=== PATIENT | female | born 1970 | race Caucasian/White ===

== ENCOUNTER 2017-12-28 07:47 | Emergency (ER) | payer MEDICAID ==
[~2017-12-28] VITALS: Ht 165.1 cm; Wt 75.0 kg
[2017-12-28 07:52] VITALS: Ht 165.1 cm; Wt 75.0 kg
[2017-12-28] MEDS ORDERED: ESTRACE2 MG PO (07:54)
[2017-12-28 08:23] LABS: BASOPHILS 0.1 % (0-2); EOSINOPHILS 0.7 % (0-7); HEMATOCRIT 47.7 % (36.0-48.0); HEMOGLOBIN 16.4 g/dL (12-16); IMMATURE GRANULOCYTES 0.3 % (0-5); LYMPHOCYTES 32.9 % (15-50); MCH 29.8 pg (26.0-34.0); MCHC 34.4 g/dL (31.0-37.0); MCV 86.6 fL (80.0-100.0); MEAN PLATELET VOLUME 9.6 fL (7.4-10.4); MONOCYTES 6.3 % (2-11); NEUTROPHILS 59.7 % (40-80); PLATELET COUNT 274 10x3/uL (130-400); RBC 5.51 10x6/uL (4.00-5.40); RDW 13.3 % (11.5-14.5); WBC 9.2 10x3/uL (4.8-10.8)
[2017-12-28 08:49] LABS: ALBUMIN 4.1 g/dL (3.4-5.0); ALKALINE PHOSPHATASE 82 U/L (46-116); ALT (SGPT) 16 U/L (10-68); BILIRUBIN - TOTAL 0.33 mg/dL (0.2-1.3); CALC OSMOLALITY 278 mosm/kg (275-300); CALCIUM 9.2 mg/dL (8.5-10.1); CARBON DIOXIDE 23.4 mmol/L (21.0-32.0); CHLORIDE - SERUM 105 mmol/L (98-107); CREATININE - SERUM 0.8 mg/dL (0.6-1.3); GLUCOSE 110 mg/dL (74-106); POTASSIUM - SERUM 3.7 mmol/L (3.5-5.1); PROTEIN - SERUM 8.1 g/dL (6.4-8.2); SODIUM 140 mmol/L (136-145); UREA NITROGEN 10 mg/dL (7-18); eGFR NON AFRICAN AMERICAN 82 mL/min (90-120)
[2017-12-28] MEDS ORDERED: ULTRAM50 MG PO (09:58)
[2017-12-28] MEDS ORDERED: HYDROCODON-ACE1 EAC7 PO (10:07)
[2017-12-28 10:21] VITALS: BP 146/84
[2017-12-28 10:27] LABS: COLOR YELLOW (YELLOW); GLUCOSE NEGATIVE (NEGATIVE); KETONE NEGATIVE (NEGATIVE); NITRITE NEGATIVE (NEGATIVE); SPECIFIC GRAVITY 1.015 (1.005-1.020)
[2017-12-28 10:28] LABS: BACTERIA FEW /hpf (NONE SEEN); BILIRUBIN NEGATIVE (NEGATIVE); EPITHELIAL CELLS 0-5 /hpf (0-5); MUCUS <1+ /lpf (NONE SEEN); WHITE CELLS - URINE RARE /hpf (0-5)
[2017-12-28 11:05] LABS: APPEARANCE CLEAR (CLEAR)
[2017-12-28 11:06] LABS: PROTEIN NEGATIVE (NEGATIVE); UROBILINOGEN NORMAL (NORMAL)
[2018-02-16] MEDS ORDERED: NEURONTIN600 MG PO (10:27)
[2018-02-16] MEDS ORDERED: VALIUM10 MG PO (10:28)
[2018-02-26 09:05] VITALS: Ht 165.1 cm; Wt 75.0 kg
== END 2017-12-28 10:22 | disposition home or self-care (01) ==
LOC: D.ER 07:47
PROVIDERS: Family Medicine
DX: N93.9 Abnormal uterine and vaginal bleeding, unspecified (principal); M54.5 Low back pain; F17.200 Nicotine dependence, unspecified, uncomplicated

== ENCOUNTER 2018-02-17 08:15 | Inpatient (IN) | payer MEDICAID ==
[2018-02-16 10:58] LABS: BASOPHILS 0.3 % (0-2); EOSINOPHILS 0.9 % (0-7); HEMATOCRIT 45.8 % (36.0-48.0); HEMOGLOBIN 15.8 g/dL (12-16); IMMATURE GRANULOCYTES 0.3 % (0-5); LYMPHOCYTES 32.6 % (15-50); MCH 29.8 pg (26.0-34.0); MCHC 34.5 g/dL (31.0-37.0); MCV 86.4 fL (80.0-100.0); MEAN PLATELET VOLUME 9.1 fL (7.4-10.4); MONOCYTES 5.6 % (2-11); NEUTROPHILS 60.3 % (40-80); PLATELET COUNT 284 10x3/uL (130-400); RDW 14.1 % (11.5-14.5); WBC 7.5 10x3/uL (4.8-10.8)
[2018-02-16 11:11] LABS: ANION GAP 13.1 mmol/L (8-16); CALCIUM 9.1 mg/dL (8.5-10.1); CARBON DIOXIDE 25.4 mmol/L (21.0-32.0); CREATININE - SERUM 0.9 mg/dL (0.6-1.3); POTASSIUM - SERUM 4.5 mmol/L (3.5-5.1)
[2018-02-17] VITALS (7 sets, daily range): BP systolic 114–137; BP diastolic 54–87; Ht 165.1 cm; Wt 70.5 kg
[~2018-02-17] VITALS: Ht 165.1 cm; Wt 70.5 kg
--- NOTE | ~2018-02-17 | DS ---
PATIENT:MELISSA DUMONT :72 MEDICAL RECORD: [id number] DISCHARGE SUMMARY ADMISSION DATE: 02/17/18 DISCHARGE DATE: DATE OF ADMISSION: 02/17/2018. DATE OF DISCHARGE: 02/19/2018. ADMISSION DIAGNOSIS: Dysfunctional bleeding. DISCHARGE DIAGNOSIS: Dysfunctional bleeding. PROCEDURE: Total abdominal hysterectomy. HISTORY OF PRESENT ILLNESS: See the H&P in the chart. ATTENDING: Misbah Davis MD SUMMARY OF HOSPITALIZATION: The patient was admitted to the hospital and underwent procedure without incident. There was some issue with postoperative pain management on hospital day #1 and her Percocet was changed to Dilaudid. At discharge, she will be receiving Dilaudid for pain management as well as Neurontin. I have asked her to take Neurontin 300 mg t.i.d. for the next 3 days. The patient will be followed up in 2 weeks and standard postoperative precautions have been reviewed. At the time of discharge, she has adequate pain control, is afebrile and incision is clean, dry and intact. TRANSINT:[id number] Voice Confirmation ID: [id number] DOCUMENT ID: [id number] MISBAH DAVIS MD at 1609 CC: [id number] DICTATION DATE: 02/19/18 1302 PROCESS AUTOMATION ENGINEER: 02/19/18 1312 ADM IN [place] [id number]
--- NOTE | ~2018-02-17 | OP ---
PATIENT NAME: MELISSA DUMONT MEDICAL RECORD: [id number] :72 LOCATION:[place] D.1217 ADMISSION DATE:02/17/18 SURGEON: AB DAVIS MD DATE OF OPERATION: 02/17/2018 DATE OF SERVICE: 02/17/2018 PREOPERATIVE DIAGNOSIS: Dysfunctional uterine bleeding. POSTOPERATIVE DIAGNOSES: 1. Dysfunctional uterine bleeding. 2. Dense pelvic adhesions. PROCEDURE PERFORMED: 1. Exploratory laparotomy. 2. Lysis of adhesions. 3. Repair of serosal bowel tear. 4. Subtotal hysterectomy. SURGEON: Ab Davis MD RESIDENTIAL MENTAL HEALTH WORKER: Dr. Mina. PUMP ROOM OPERATOR: Jose Garcia. ANESTHESIA: General. FINDINGS: Uterus is unremarkable. The bladder was adhesed to the cervix densely. Several bowel adhesions to the midline. Ovaries are surgically absent. ESTIMATED BLOOD LOSS: Less than or equal to 100. FLUIDS: 800 cc of lactated Ringer's. URINE OUTPUT: 100 cc of clear urine. COMPLICATIONS: None. DRAINS: Qiu to gravity. INDICATIONS: The patient is a 47-year-old female who has previously had both ovaries removed in separate procedures. The patient was scheduled to go back for hysterectomy, but failed to follow up with her surgeon in [place]. The patient now is on hormone replacement therapy and has been taking unopposed estrogen. Biopsy shows benign tissue. At this point, the patient desires definitive therapy for her bleeding. The patient has been consented for abdominal hysterectomy. DESCRIPTION OF PROCEDURE: After informed consent was ensured, the patient was taken to the operating room where anesthetic was obtained. The patient was now prepped and draped and an incision was made over the old scar. The fascia was opened and the fascial opening extended laterally. The rectus was dissected free superiorly and inferiorly and then in the midline. Immediate adhesions were encountered. These dense adhesions were taken down sharply. OPERATIVE REPORT [id number] MELISSA DUMONT During this, a small serosal tear occurred in the serosa of the bowel and it was closed with an imbricating stitch of silk. After this had been performed, the bowel was packed free of the pelvis with the patient in Trendelenburg position and using hand held retractors, the uterus exposed and Carmalt clamps placed on the cornual regions. The round ligament on the left side was elevated, transfixed with a stitch and opened. The dissection was carried down anteriorly to the level of the internal os. The surrounding tissues were dissected free and the vessels were doubly clamped. Attention was now directed to the right side where the dissection was carried out in a similar manner by elevating the right round ligament and transfixing with a Vicryl stitch. Dissection began at the round ligament, it was carried down the anterior leaf of the broad ligament and then the posterior leaf. The right vascular bundle was doubly clamped and cut and the 2 Jefry stitch applied here for hemostasis. The left vascular bundle was now cut and tied in a similar fashion. The inspection of the anterior wall revealed dense adhesions of the bladder to the cervix and it was felt prudent to abandon attempts at a total abdominal hysterectomy given the patient's low risk for cervical cancer and a history of normal Pap smears. After removal of the uterus from its attachments to the cervix, the endocervical canal was cauterized. Cervical stump was closed with interrupted stitches. The pelvis was irrigated and irrigant removed. General surgery was consulted to inspect bowel injury. After inspection of the injury, the fascia was now closed in a running fashion with absorbable suture. Subcutaneous tissue was inspected and bleeding vessels cauterized. Skin was now reapproximated. Sponge, lap, and needle count was correct times 2. The patient was awakened and went to the recovery room in stable condition. TRANSINT:[id number] Voice Confirmation ID: [id number] DOCUMENT ID: [id number] AB DAVIS MD at 1217 CC: [id number] DICTATION DATE: 03/11/18 1633 STOCK SHEETS CLEANER INSPECTOR: 03/11/18 1723 DIS IN 02/19/18 [facility] [address] [place] [id number]
[~2018-02-17 08:15] MED LIST: ESTRACE2 MG PO; HYDROCODON-ACE1 EAC7 PO; NEURONTIN600 MG PO; ULTRAM50 MG PO; VALIUM10 MG PO
[2018-02-17 09:37] LABS: HCG URINE NEGATIVE (NEGATIVE)
[2018-02-18 03:45] VITALS: BP 103/54
[2018-02-18 06:31] LABS: BASOPHILS 0 % (0-2); EOSINOPHILS 0 % (0-7); HEMOGLOBIN 13.3 g/dL (12-16); IMMATURE GRANULOCYTES 0.1 % (0-5); LYMPHOCYTES 10.8 % (15-50); MCH 28.8 pg (26.0-34.0); MCHC 33.3 g/dL (31.0-37.0); MCV 86.6 fL (80.0-100.0); MEAN PLATELET VOLUME 9.7 fL (7.4-10.4); MONOCYTES 5.6 % (2-11); NEUTROPHILS 83.5 % (40-80); PLATELET COUNT 249 10x3/uL (130-400); RBC 4.62 10x6/uL (4.00-5.40); RDW 14.1 % (11.5-14.5)
[2018-02-18 06:34] LABS: CALC OSMOLALITY 272 mosm/kg (275-300); CALCIUM 8.3 mg/dL (8.5-10.1); CARBON DIOXIDE 25.7 mmol/L (21.0-32.0); CHLORIDE - SERUM 104 mmol/L (98-107); CREATININE - SERUM 0.7 mg/dL (0.6-1.3); GLUCOSE 106 mg/dL (74-106); POTASSIUM - SERUM 4.5 mmol/L (3.5-5.1); SODIUM 138 mmol/L (136-145); UREA NITROGEN 5 mg/dL (7-18); eGFR NON AFRICAN AMERICAN > 90 mL/min (90-120)
[2018-02-18 06:39] LABS: WBC 10.8 10x3/uL (4.8-10.8)
[2018-02-18 08:20] VITALS: BP 107/50
[2018-02-18 11:22] VITALS: BP 100/53
[2018-02-18 16:45] VITALS: BP 116/60
[2018-02-18 20:25] VITALS: BP 133/81
[2018-02-19 00:35] VITALS: BP 116/82
[2018-02-19 04:04] VITALS: BP 109/68
[2018-02-19 08:06] VITALS: BP 112/82
[2018-02-19] MEDS ORDERED: NEURONTIN 300300 MG PO (14:21)
[2018-02-19] MEDS ORDERED: MEPERIDINE HCL50 MG PO (14:22)
== END 2018-02-19 14:47 | disposition home or self-care (01) | DRG 743 ==
LOC: D.WS 08:50 → D.SDCHOLD 08:50 → D.WS 17:21
PROVIDERS: Obstetrics & Gynecology
PROC: 0UT94ZZ Resection of Uterus, Percutaneous Endoscopic Approach (ICD-10-PCS; principal; 2018-02-17 11:00)
DX: N93.8 Other specified abnormal uterine and vaginal bleeding (principal); I10 Essential (primary) hypertension; Z72.0 Tobacco use

== ENCOUNTER 2018-02-26 09:00 | Emergency (ER) | payer MEDICAID ==
[~2018-02-26] VITALS: Ht 165.1 cm; Wt 70.5 kg
[~2018-02-26 09:00] MED LIST changes: +MEPERIDINE HCL50 MG PO; +NEURONTIN 300300 MG PO
[2018-02-26 09:05] VITALS: BP 126/95; Ht 165.1 cm; Wt 70.5 kg
[2018-02-26 10:01] LABS: HEMATOCRIT 45.3 % (36.0-48.0); HEMOGLOBIN 15.5 g/dL (12-16); LYMPHOCYTES 34.9 % (15-50); MCH 29.2 pg (26.0-34.0); MCHC 34.2 g/dL (31.0-37.0); MCV 85.5 fL (80.0-100.0); MEAN PLATELET VOLUME 8.7 fL (7.4-10.4); NEUTROPHILS 57.7 % (40-80); RDW 13.4 % (11.5-14.5)
[2018-02-26 10:04] LABS: PLATELET COUNT 352 10x3/uL (130-400)
[2018-02-26 10:07] LABS: ALBUMIN 3.4 g/dL (3.4-5.0); ANION GAP 12.3 mmol/L (8-16); BILIRUBIN - TOTAL 0.12 mg/dL (0.2-1.3); CARBON DIOXIDE 25.9 mmol/L (21.0-32.0); CREATININE - SERUM 0.9 mg/dL (0.6-1.3); POTASSIUM - SERUM 4.2 mmol/L (3.5-5.1); PROTEIN - SERUM 7.6 g/dL (6.4-8.2)
== END 2018-02-26 10:05 | disposition home or self-care (01) ==
LOC: D.ER 09:00
PROVIDERS: Family Medicine
DX: G89.18 Other acute postprocedural pain (principal); I10 Essential (primary) hypertension; Z85.42 Personal history of malignant neoplasm of other parts of uterus; F17.200 Nicotine dependence, unspecified, uncomplicated

== ENCOUNTER 2018-04-05 00:28 | Emergency (ER) | payer MEDICAID ==
[~2018-04-05] VITALS: Ht 165.1 cm; Wt 61.4 kg
[2018-04-05 00:34] VITALS: Ht 165.1 cm; Wt 61.4 kg
[2018-04-05 00:57] LABS: APPEARANCE CLEAR (CLEAR); BILIRUBIN NEGATIVE (NEGATIVE); COLOR STRAW (YELLOW); GLUCOSE NEGATIVE (NEGATIVE); KETONE NEGATIVE (NEGATIVE); NITRITE NEGATIVE (NEGATIVE); PROTEIN NEGATIVE (NEGATIVE); SPECIFIC GRAVITY 1.005 (1.005-1.020); UROBILINOGEN NORMAL (NORMAL)
[2018-04-05 01:05] LABS: HEMATOCRIT 44.4 % (36.0-48.0); HEMOGLOBIN 14.8 g/dL (12-16); LYMPHOCYTES 43.8 % (15-50); MCH 27.8 pg (26.0-34.0); MCHC 33.3 g/dL (31.0-37.0); MCV 83.5 fL (80.0-100.0); MEAN PLATELET VOLUME 8.8 fL (7.4-10.4); NEUTROPHILS 44.6 % (40-80); RBC 5.32 10x6/uL (4.00-5.40); RDW 13.9 % (11.5-14.5); WBC 8.3 10x3/uL (4.8-10.8)
[2018-04-05 01:07] LABS: PLATELET COUNT 270 10x3/uL (130-400)
[2018-04-05] MEDS ORDERED: CLEOCIN HCL150 MG PO (01:14)
[2018-04-05 01:27] LABS: ALBUMIN 3.5 g/dL (3.4-5.0); ALKALINE PHOSPHATASE 78 U/L (46-116); ALT (SGPT) 20 U/L (10-68); AMYLASE - SERUM 40 U/L (25-115); BILIRUBIN - TOTAL 0.22 mg/dL (0.2-1.3); CALC OSMOLALITY 286 mosm/kg (275-300); CALCIUM 9.3 mg/dL (8.5-10.1); CHLORIDE - SERUM 107 mmol/L (98-107); CREATININE - SERUM 0.7 mg/dL (0.6-1.3); GLUCOSE 86 mg/dL (74-106); LIPASE 320 U/L (73-393); POTASSIUM - SERUM 3.5 mmol/L (3.5-5.1); PROTEIN - SERUM 7.7 g/dL (6.4-8.2); SODIUM 146 mmol/L (136-145); UREA NITROGEN 3 mg/dL (7-18); eGFR NON AFRICAN AMERICAN > 90 mL/min (90-120)
[2018-04-05 01:44] LABS: CARBON DIOXIDE 26.8 mmol/L (21.0-32.0)
[2018-04-05 01:58] LABS: UDS - AMPHET NEGATIVE QUAL (NEGATIVE); UDS - BARB NEGATIVE QUAL (NEGATIVE); UDS - BENZO POSITIVE QUAL (NEGATIVE); UDS - COCAINE NEGATIVE QUAL (NEGATIVE); UDS - OPIATE NEGATIVE QUAL (NEGATIVE); UDS - PCP NEGATIVE QUAL (NEGATIVE); UDS - THC POSITIVE QUAL (NEGATIVE)
[2018-04-05] MEDS ORDERED: NORCO 7.5/325 T1 TA1 PO (03:30)
[2018-04-05 04:30] VITALS: BP 118/70
== END 2018-04-05 04:30 | disposition home or self-care (01) ==
LOC: D.ER 00:28
PROVIDERS: Emergency Medicine
DX: G89.18 Other acute postprocedural pain (principal); F10.129 Alcohol abuse with intoxication, unspecified; T81.49XA Infection following a procedure, other surgical site, initial encounter; I10 Essential (primary) hypertension; F17.200 Nicotine dependence, unspecified, uncomplicated

== ENCOUNTER 2018-11-01 17:54 | Emergency (ER) | payer MEDICAID ==
[~2018-11-01] VITALS: Ht 165.1 cm; Wt 62.7 kg
[~2018-11-01 17:54] MED LIST changes: +CLEOCIN HCL150 MG PO; +NORCO 7.5/325 T1 TA1 PO
[2018-11-01 18:11] VITALS: Ht 165.1 cm; Wt 62.7 kg
[2018-11-01] MEDS ORDERED: BACLOFEN10 MG PO (18:15)
[2018-11-01] MEDS ORDERED: NEURONTIN600 MG PO (18:16)
[2018-11-01 19:18] LABS: BASOPHILS 0.2 % (0-2); EOSINOPHILS 2.8 % (0-7); HEMATOCRIT 38.5 % (36.0-48.0); HEMOGLOBIN 12.8 g/dL (12-16); IMMATURE GRANULOCYTES 0.1 % (0-5); MCH 29.3 pg (26.0-34.0); MCHC 33.2 g/dL (31.0-37.0); MCV 88.1 fL (80.0-100.0); MEAN PLATELET VOLUME 8.7 fL (7.4-10.4); MONOCYTES 5.6 % (2-11); NEUTROPHILS 54.3 % (40-80); PLATELET COUNT 296 10x3/uL (130-400); RBC 4.37 10x6/uL (4.00-5.40); RDW 14.1 % (11.5-14.5); WBC 9.6 10x3/uL (4.8-10.8)
[2018-11-01 19:32] LABS: ALBUMIN 3.4 g/dL (3.4-5.0); ALKALINE PHOSPHATASE 71 U/L (46-116); ALT (SGPT) 76 U/L (10-68); AMYLASE - SERUM 109 U/L (25-115); BILIRUBIN - TOTAL 0.13 mg/dL (0.2-1.3); CALC OSMOLALITY 275 mosm/kg (275-300); CALCIUM 8.3 mg/dL (8.5-10.1); CARBON DIOXIDE 25.8 mmol/L (21.0-32.0); CHLORIDE - SERUM 105 mmol/L (98-107); CREATININE - SERUM 0.8 mg/dL (0.6-1.3); GLUCOSE 89 mg/dL (74-106); LIPASE 638 U/L (73-393); SODIUM 139 mmol/L (136-145); UREA NITROGEN 11 mg/dL (7-18); eGFR NON AFRICAN AMERICAN 81 mL/min (90-120)
[2018-11-01 21:50] LABS: APPEARANCE CLEAR (CLEAR); BILIRUBIN NEGATIVE (NEGATIVE); COLOR YELLOW (YELLOW); GLUCOSE NEGATIVE (NEGATIVE); KETONE NEGATIVE (NEGATIVE); NITRITE NEGATIVE (NEGATIVE); PROTEIN NEGATIVE (NEGATIVE); SPECIFIC GRAVITY 1.015 (1.005-1.020); UROBILINOGEN NORMAL (NORMAL)
[2018-11-02 01:09] VITALS: BP 127/64
== END 2018-11-02 01:11 | disposition home or self-care (01) ==
LOC: D.ER 17:54
PROVIDERS: Emergency Medicine
DX: K86.1 Other chronic pancreatitis (principal); G89.29 Other chronic pain

== ENCOUNTER 2018-12-30 03:46 | Emergency (ER) | payer MEDICAID ==
[~2018-12-30] VITALS: Ht 165.1 cm; Wt 69.1 kg
[~2018-12-30 03:46] MED LIST changes: +BACLOFEN10 MG PO
[2018-12-30 03:50] VITALS: Ht 165.1 cm; Wt 69.1 kg
[2018-12-30 05:31] LABS: BASOPHILS 0.2 % (0-2); EOSINOPHILS 0.6 % (0-7); HEMATOCRIT 37.4 % (36.0-48.0); HEMOGLOBIN 12.4 g/dL (12-16); IMMATURE GRANULOCYTES 0.2 % (0-5); LYMPHOCYTES 19.6 % (15-50); MCH 28.8 pg (26.0-34.0); MCHC 33.2 g/dL (31.0-37.0); MEAN PLATELET VOLUME 9.3 fL (7.4-10.4); MONOCYTES 6.2 % (2-11); NEUTROPHILS 73.2 % (40-80); RDW 13.1 % (11.5-14.5); WBC 12.9 10x3/uL (4.8-10.8)
[2018-12-30 05:33] LABS: PLATELET COUNT 192 10x3/uL (130-400)
[2018-12-30 05:39] LABS: ALBUMIN 3.4 g/dL (3.4-5.0); ANION GAP 11.4 mmol/L (8-16); BILIRUBIN - TOTAL 0.29 mg/dL (0.2-1.3); CALCIUM 8.2 mg/dL (8.5-10.1); CARBON DIOXIDE 26.8 mmol/L (21.0-32.0); CREATININE - SERUM 0.9 mg/dL (0.6-1.3); MAGNESIUM - SERUM 2.2 mg/dL (1.8-2.4); POTASSIUM - SERUM 3.2 mmol/L (3.5-5.1); PROTEIN - SERUM 6.6 g/dL (6.4-8.2)
[2018-12-30] MEDS ORDERED: TYLENOL W/CODEI1 TAB PO (06:05)
[2018-12-30 08:02] LABS: AMORPHOUS SEDIMENT >1+ /lpf (NONE SEEN); APPEARANCE SL CLDY (CLEAR); BACTERIA FEW /hpf (NONE SEEN); BILIRUBIN NEGATIVE (NEGATIVE); COLOR YELLOW (YELLOW); EPITHELIAL CELLS RARE /hpf (0-5); GLUCOSE NEGATIVE (NEGATIVE); KETONE NEGATIVE (NEGATIVE); MUCUS <1+ /lpf (NONE SEEN); NITRITE NEGATIVE (NEGATIVE); PROTEIN NEGATIVE (NEGATIVE); RED CELLS - URINE OCC /hpf (0-5); WHITE CELLS - URINE OCC /hpf (0-5)
[2018-12-30 09:34] VITALS: BP 123/76
== END 2018-12-30 09:34 | disposition home or self-care (01) ==
LOC: D.ER 03:46
PROVIDERS: Emergency Medicine; Family Medicine
DX: R10.13 Epigastric pain (principal)

== ENCOUNTER 2019-05-07 03:01 | Emergency (ER) | payer MEDICAID ==
[~2019-05-07] VITALS: Ht 165.1 cm; Wt 67.7 kg
[~2019-05-07 03:01] MED LIST changes: +TYLENOL W/CODEI1 TAB PO
[2019-05-07 03:04] VITALS: Ht 165.1 cm; Wt 67.7 kg
[2019-05-07] MEDS ORDERED: ULTRAM50 MG PO (04:39)
[2019-05-07 05:59] VITALS: BP 131/88
== END 2019-05-07 06:04 | disposition home or self-care (01) ==
LOC: D.ER 03:01
DX: S80.812A Abrasion, left lower leg, initial encounter (principal); W19.XXXA Unspecified fall, initial encounter; Y93.9 Activity, unspecified; Y92.9 Unspecified place or not applicable; S00.93XA Contusion of unspecified part of head, initial encounter; S39.012A Strain of muscle, fascia and tendon of lower back, initial encounter; I10 Essential (primary) hypertension; Z72.0 Tobacco use; R51 Headache; M54.2 Cervicalgia; M25.562 Pain in left knee; M25.561 Pain in right knee; M41.9 Scoliosis, unspecified

== ENCOUNTER 2019-05-16 15:54 | Emergency (ER) | payer MEDICAID ==
[~2019-05-16] VITALS: Ht 165.1 cm; Wt 67.3 kg
[2019-05-16 16:36] VITALS: Ht 165.1 cm; Wt 67.3 kg
[2019-05-16 16:55] LABS: BASOPHILS 0.2 % (0-2); EOSINOPHILS 0 % (0-7); HEMATOCRIT 42.9 % (36.0-48.0); HEMOGLOBIN 14.1 g/dL (12-16); IMMATURE GRANULOCYTES 0.2 % (0-5); LYMPHOCYTES 21.9 % (15-50); MCH 28.8 pg (26.0-34.0); MCHC 32.9 g/dL (31.0-37.0); MCV 87.7 fL (80.0-100.0); MEAN PLATELET VOLUME 9.1 fL (7.4-10.4); MONOCYTES 5.6 % (2-11); NEUTROPHILS 72.1 % (40-80); PLATELET COUNT 184 10x3/uL (130-400); RBC 4.89 10x6/uL (4.00-5.40); WBC 10.1 10x3/uL (4.8-10.8)
[2019-05-16 17:16] LABS: CALC OSMOLALITY 271 mosm/kg (275-300); CALCIUM 8.7 mg/dL (8.5-10.1); CARBON DIOXIDE 27.7 mmol/L (21.0-32.0); CHLORIDE - SERUM 101 mmol/L (98-107); CREATININE - SERUM 0.7 mg/dL (0.6-1.3); GLUCOSE 92 mg/dL (74-106); POTASSIUM - SERUM 3.6 mmol/L (3.5-5.1); SODIUM 137 mmol/L (136-145); UREA NITROGEN 8 mg/dL (7-18); eGFR NON AFRICAN AMERICAN > 90 mL/min (90-120)
[2019-05-16 17:21] LABS: ALKALINE PHOSPHATASE 194 U/L (46-116); ALT (SGPT) 91 U/L (10-68); BILIRUBIN - TOTAL 0.58 mg/dL (0.2-1.3); PROTEIN - SERUM 7.3 g/dL (6.4-8.2)
[2019-05-16] MEDS ORDERED: ALBUTEROL SULF8.5 GM INH (18:30)
[2019-05-16] MEDS ORDERED: MONODOX100 MG PO (18:30)
[2019-05-16 19:12] VITALS: BP 116/64
== END 2019-05-16 19:12 | disposition home or self-care (01) ==
LOC: D.ER 15:54
PROVIDERS: Family Medicine
DX: J18.9 Pneumonia, unspecified organism (principal); Z72.0 Tobacco use; R05 Cough; R06.2 Wheezing

== ENCOUNTER 2019-05-20 11:11 | Inpatient (IN) | payer MEDICAID ==
[~2019-05-20] VITALS: Ht 165.1 cm; Wt 67.3 kg
--- NOTE | ~2019-05-20 | EC ---
PATIENT:MELISSA DUMONT DATE OF SERVICE: 05/20/19 SEX: F MEDICAL RECORD: [id number] DATE OF : 72 LOCATION:D.M3 D.120 AGE OF PATIENT: 48 ADMISSION DATE: 05/20/19 REFERRING PHYSICIAN: INTERPRETING PHYSICIAN: STIVEN PADILLA MD ECHOCARDIOGRAM REPORT ECHO CHARGES 4 ECHO COMPLETE Date: 05/24/19 CLINICAL DIAGNOSIS: CHF ECHOCARDIOGRAPHIC MEASUREMENTS (adult normal given) AC root (d.<3.7cm) 2.5 cm LV Septum d (<1.2 cm> 0.7 cm Valve Excursion 2.0 cm LV Septum (systole) 1.0 cm Left Atria (s.<4.0cm> 2.2 cm LVPW d(<1.2cm) 0.8 cm RV (d.<2.3cm) 2.8 cm LVPW (sytole) 1.4 cm LV diastole(<5.6CM) 5.6 cm MV E-F(>70mm/sec) cm LV systole 4.0 cm LVOT Diameter 1.8 cm MV exc.(>10mm) cm Est.ejection fraction (50-75%) % DOPPLER: LVIT cm/sec A 74 cm/sec E 84 cm/sec LA cm/sec RVSP 28.0 mmHg LVOT 123 cm/sec AOP1/2T m/s Asc. Ao 141 cm/sec RVOT 53 cm/sec RA cm/sec PA 77 cm/sec AV Gradient Peak 8.0 mmHg AV Mean 4.6 mmHg AV Area 2.3 cm MV Gradient Peak 3.4 mmHg MV Mean 1.6 mmHg MV Area cm COMMENTS: Director Workforce Management: [facility] Cylinder Die Machine Operator: 1 Dr. Padilla TAPE# PACS Pericardial Effusion N DATE OF SERVICE: ECHOCARDIOGRAM FINDINGS: 1. Left ventricular chamber size is within normal limits. Left ventricular systolic function is normal. Overall ejection fraction estimated at 60%. 2. Left atrium, right atrium and right ventricular chamber sizes are within normal limits. 3. Valvular structures have normal structure and motion. ECHOCARDIOGRAM REPORT [id number] MELISSA DUMONT 4. Doppler interrogation reveals no significant valvular insufficiency or stenosis. Pulmonary systolic pressure estimated at 28 mmHg. 5. No evidence of pericardial effusion or left ventricular thrombus. TRANSINT:[id number] Voice Confirmation ID: [id number] DOCUMENT ID: [id number] STIVEN PADILLA MD CC: [id number] DICTATION DATE: 05/25/19 1104 DENTAL TECHNICIAN: 05/25/19 1307 DIS IN 05/24/19 [place] [id number] [place] [id number]
[~2019-05-20 11:11] MED LIST changes: +ALBUTEROL SULF8.5 GM INH; +MONODOX100 MG PO
[2019-05-20] MEDS ORDERED: ZOLOFT50 MG PO (11:42)
[2019-05-20] MEDS ORDERED: ATARAX 25 MG TA25 MG PO (11:43)
[2019-05-20 12:25] LABS: BASOPHILS 0.2 % (0-2); EOSINOPHILS 0 % (0-7); HEMATOCRIT 39.3 % (36.0-48.0); IMMATURE GRANULOCYTES 0.2 % (0-5); LYMPHOCYTES 10.9 % (15-50); MCH 28.8 pg (26.0-34.0); MCHC 33.1 g/dL (31.0-37.0); MCV 86.9 fL (80.0-100.0); MEAN PLATELET VOLUME 9.7 fL (7.4-10.4); NEUTROPHILS 79.7 % (40-80); PLATELET COUNT 400 10x3/uL (130-400); RBC 4.52 10x6/uL (4.00-5.40); RDW 15.4 % (11.5-14.5); WBC 12.1 10x3/uL (4.8-10.8)
[2019-05-20 12:38] LABS: ALKALINE PHOSPHATASE 179 U/L (46-116); ALT (SGPT) 45 U/L (10-68); BILIRUBIN - TOTAL 0.76 mg/dL (0.2-1.3); CALC OSMOLALITY 269 mosm/kg (275-300); CARBON DIOXIDE 28.9 mmol/L (21.0-32.0); CHLORIDE - SERUM 95 mmol/L (98-107); CREATININE - SERUM 0.6 mg/dL (0.6-1.3); GLUCOSE 105 mg/dL (74-106); PROTEIN - SERUM 7.9 g/dL (6.4-8.2); SODIUM 136 mmol/L (136-145); UREA NITROGEN 7 mg/dL (7-18); eGFR NON AFRICAN AMERICAN > 90 mL/min (90-120)
[2019-05-20 12:42] LABS: POTASSIUM - SERUM 2.9 mmol/L (3.5-5.1)
--- NOTE | 2019-05-20 12:42 | NUR ---
CRITICAL LOW K+ OF 2.9 CALLED BY HEALTH AND WELLNESS COACH AT THIS TIME. NOTIFIED EDP
[2019-05-20 12:45] LABS: ALBUMIN 2.3 g/dL (3.4-5.0)
[2019-05-20 14:25] VITALS: Ht 165.1 cm; Wt 67.3 kg
--- NOTE | 2019-05-20 17:52 | NUR ---
PT RESTING IN BED, DIEUDONNE NEEDS. WCTM.
[2019-05-20 20:05] VITALS: BP 117/71
--- NOTE | 2019-05-20 23:17 | NUR ---
ASSESSED AT THE BEGINNING OF THE SHIFT. PT IS ALERT AND ORIENTED, ABLE TO VERBALIZE NEEDS. SHE WAS PLACED ON O2 AT 5 LITERS WHEN THE RESP CAME THROUGH AT SHIFT CHANGE AND FOUND HER TO BE AT 84-85%. WHEN WE TOOK VITAL SIGNS SHORTLY AFTER IT WAS 95%. SHE ALSO HAS ON A TELEMETRY BOX WHICH SHOWS 89 SR. SHE IS UP AD [place] AND HAS COMPLAINED ABOUT SEVERAL THINGS SHE WANTS MEDICINE LAND. [place] NITIN WAS RETURNED GOODS INSPECTOR AND HE WAS CONTACTED. NEUROTIN WAS ORDERED BUT NOT THE BACLOFEN WHICH SHE WAS WANTING. LATER SHE STATED SHE NEEDED A NICOTINE PATCH AND WAS ADVISED WE WOULD ASK FOR ONE FIRST THING IN THE MORNING.
[2019-05-21] VITALS: BP 122/76
[2019-05-21 04:09] VITALS: BP 127/73
[2019-05-21 06:35] LABS: BASOPHILS 0 % (0-2); EOSINOPHILS 0 % (0-7); HEMATOCRIT 36.1 % (36.0-48.0); HEMOGLOBIN 11.9 g/dL (12-16); IMMATURE GRANULOCYTES 0.3 % (0-5); LYMPHOCYTES 7.3 % (15-50); MCH 28.2 pg (26.0-34.0); MCV 85.5 fL (80.0-100.0); MEAN PLATELET VOLUME 9.8 fL (7.4-10.4); MONOCYTES 5.1 % (2-11); NEUTROPHILS 87.3 % (40-80); PLATELET COUNT 389 10x3/uL (130-400); RBC 4.22 10x6/uL (4.00-5.40); RDW 15.2 % (11.5-14.5)
[2019-05-21 06:39] LABS: ALKALINE PHOSPHATASE 172 U/L (46-116); BILIRUBIN - TOTAL 0.51 mg/dL (0.2-1.3); CALCIUM 8.7 mg/dL (8.5-10.1); CARBON DIOXIDE 30.3 mmol/L (21.0-32.0); CHLORIDE - SERUM 102 mmol/L (98-107); CREATININE - SERUM 0.5 mg/dL (0.6-1.3); MAGNESIUM - SERUM 2.5 mg/dL (1.8-2.4); PROTEIN - SERUM 6.9 g/dL (6.4-8.2); SODIUM 140 mmol/L (136-145); UREA NITROGEN 8 mg/dL (7-18); eGFR NON AFRICAN AMERICAN > 90 mL/min (90-120)
[2019-05-21 06:44] LABS: ALT (SGPT) 104 U/L (10-68); CALC OSMOLALITY 280 mosm/kg (275-300); GLUCOSE 174 mg/dL (74-106)
[2019-05-21 06:49] LABS: WBC 6.8 10x3/uL (4.8-10.8)
[2019-05-21 07:49] VITALS: BP 124/67
--- NOTE | 2019-05-21 09:00 | NUR ---
ALERT AND ORIENTED X4. SLIGHT DYSPNEA NOTED WITH NONPRODUCTIVE COUGH. LUNGS DIMINISHED TO BLQ POSTERIOR. TLELEMTRY INTACT. O2 6L N/C AND HAS TO ENCOURAGED TO KEEP ON .ENCOURAGED TO USE CALL LIGHT FOR ASSIST.IV TO RT. WRIST AND S/L.
[2019-05-21 11:38] VITALS: BP 120/77
[2019-05-21 16:00] VITALS: BP 109/58
[2019-05-21 17:16] LABS: APPEARANCE CLEAR (CLEAR); BILIRUBIN NEGATIVE (NEGATIVE); COLOR DK YELLOW (YELLOW); GLUCOSE NEGATIVE (NEGATIVE); KETONE NEGATIVE (NEGATIVE); NITRITE NEGATIVE (NEGATIVE); PROTEIN 2+ mg/dL (NEGATIVE); UROBILINOGEN NORMAL (NORMAL)
[2019-05-21 17:18] LABS: BACTERIA FEW /hpf (NEGATIVE); EPITHELIAL CELLS 0-5 /hpf (0-5); MUCUS <1+ /lpf (NONE SEEN); RED CELLS - URINE 0-5 /hpf (0-5); WHITE CELLS - URINE 0-5 /hpf (NEGATIVE)
[2019-05-21 17:27] LABS: UDS - AMPHET NEGATIVE QUAL (NEGATIVE); UDS - BARB NEGATIVE QUAL (NEGATIVE); UDS - BENZO POSITIVE QUAL (NEGATIVE); UDS - COCAINE NEGATIVE QUAL (NEGATIVE); UDS - OPIATE NEGATIVE QUAL (NEGATIVE); UDS - PCP NEGATIVE QUAL (NEGATIVE); UDS - THC POSITIVE QUAL (NEGATIVE)
[2019-05-21 19:31] VITALS: BP 113/70
--- NOTE | 2019-05-21 19:46 | NUR ---
ASSESSED AT THE BEGINNING OF THE SHIFT. PT IS ALERT AND ORIENTED, ABLE TO VERBALIZE NEEDS. RESTING QUIET IN ROOM WITH TV OFF. NEW NICOTINE PATCH APPLIED DUE TO LOSS OF EARLIER PATCH IN SHOWER. VITAL SIGNS TAKEN AND NO NEEDS VOICED.
--- NOTE | 2019-05-21 20:58 | NUR ---
ALL HS MEDS TAKEN AND PT RESTING WITH TV ON AND TALKING ON THE PHONE. NO NEEDS VOICED OTHER THAN A COKE WITH ICE.
[2019-05-22] VITALS (7 sets, daily range): BP systolic 111–134; BP diastolic 71–83
[2019-05-22 05:44] LABS: BASOPHILS 0.1 % (0-2); EOSINOPHILS 0 % (0-7); HEMATOCRIT 35.6 % (36.0-48.0); HEMOGLOBIN 11.6 g/dL (12-16); IMMATURE GRANULOCYTES 0.4 % (0-5); LYMPHOCYTES 3.8 % (15-50); MCH 28.3 pg (26.0-34.0); MCHC 32.6 g/dL (31.0-37.0); MCV 86.8 fL (80.0-100.0); MEAN PLATELET VOLUME 10.3 fL (7.4-10.4); MONOCYTES 3.8 % (2-11); NEUTROPHILS 91.9 % (40-80); PLATELET COUNT 450 10x3/uL (130-400); RDW 15.4 % (11.5-14.5); WBC 11.7 10x3/uL (4.8-10.8)
[2019-05-22 05:59] LABS: ALKALINE PHOSPHATASE 210 U/L (46-116); BILIRUBIN - TOTAL 0.44 mg/dL (0.2-1.3); CALCIUM 8.8 mg/dL (8.5-10.1); CARBON DIOXIDE 31.2 mmol/L (21.0-32.0); CHLORIDE - SERUM 105 mmol/L (98-107); CREATININE - SERUM 0.6 mg/dL (0.6-1.3); GLUCOSE 179 mg/dL (74-106); MAGNESIUM - SERUM 2.5 mg/dL (1.8-2.4); POTASSIUM - SERUM 3.6 mmol/L (3.5-5.1); PROTEIN - SERUM 6.8 g/dL (6.4-8.2); SODIUM 143 mmol/L (136-145); eGFR NON AFRICAN AMERICAN > 90 mL/min (90-120)
[2019-05-22 06:01] LABS: ALT (SGPT) 477 U/L (10-68); CALC OSMOLALITY 288 mosm/kg (275-300); UREA NITROGEN 13 mg/dL (7-18)
--- NOTE | 2019-05-22 08:14 | NUR ---
ALERT AND ORIENTED X4 WITH NONPRODUCTIVE COUGH NOTED. O2 6L N/C WITH LUNGS DIMINISHED TO BLQ POSTERIOR WITH CAP REFILL <3 SEC. IV TO RT. WRIST S/L WITH NO S/S OF INFECTION/INFILTRATION. ENCOURAGED TO LEAVE O2 ON. PT. UP ADLIB AND TOOK SHOWER YESTERDAY. TELEMETRY INTACT AND DENIES ANY CHEST PAIN OR DISCOMFORT. ENOUCRAGED TO USE CALL LIGHT FOR ASSIST.
[2019-05-22 10:35] LABS: INR 1.08 (0.85-1.17); PROTIME 13.5 SECONDS (11.6-15.0)
--- NOTE | 2019-05-22 19:26 | NUR ---
PATIENT RESTING IN BED WITH NO S/S OF DISTRESS. VSS. BROUGHT PATIENT A DRINK PER HER REQUEST. PATIENT DENIES OTHER NEEDS AT THIS TIME. BED IN LOWEST POSITION AND CALL LIGHT WITHIN REACH. ENCOURAGED THE PATIENT TO CALL IF SHE HAS NEEDS. WILL CONTINUE TO MONITOR.
--- NOTE | 2019-05-23 04:29 | NUR ---
PATIENT RESTING IN BED WITH EYES CLOSED AND NO S/S OF DISTRESS. BED IN LOWEST POSITION AND CALL LIGHT WITHIN REACH. WILL CONTINUE TO MONITOR.
[2019-05-23 05:05] VITALS: BP 138/90
[2019-05-23 07:05] LABS: BASOPHILS 0.1 % (0-2); EOSINOPHILS 0 % (0-7); HEMATOCRIT 36.3 % (36.0-48.0); HEMOGLOBIN 11.6 g/dL (12-16); IMMATURE GRANULOCYTES 0.3 % (0-5); LYMPHOCYTES 7.2 % (15-50); MCH 28.2 pg (26.0-34.0); MCV 88.1 fL (80.0-100.0); MEAN PLATELET VOLUME 10.2 fL (7.4-10.4); MONOCYTES 6.6 % (2-11); NEUTROPHILS 85.8 % (40-80); PLATELET COUNT 473 10x3/uL (130-400); RBC 4.12 10x6/uL (4.00-5.40); RDW 15.5 % (11.5-14.5); WBC 10.7 10x3/uL (4.8-10.8)
[2019-05-23 07:15] LABS: ALBUMIN 2.1 g/dL (3.4-5.0); ALKALINE PHOSPHATASE 216 U/L (46-116); ALT (SGPT) 622 U/L (10-68); BILIRUBIN - TOTAL 0.35 mg/dL (0.2-1.3); CALC OSMOLALITY 286 mosm/kg (275-300); CALCIUM 8.6 mg/dL (8.5-10.1); CARBON DIOXIDE 33.2 mmol/L (21.0-32.0); CHLORIDE - SERUM 106 mmol/L (98-107); CREATININE - SERUM 0.6 mg/dL (0.6-1.3); GLUCOSE 132 mg/dL (74-106); MAGNESIUM - SERUM 2.4 mg/dL (1.8-2.4); POTASSIUM - SERUM 4.1 mmol/L (3.5-5.1); PROTEIN - SERUM 6.1 g/dL (6.4-8.2); SODIUM 143 mmol/L (136-145); UREA NITROGEN 13 mg/dL (7-18); eGFR NON AFRICAN AMERICAN > 90 mL/min (90-120)
--- NOTE | 2019-05-23 07:15 | NUR ---
PT RESTING IN BED, EYES CLOSED. RR ARE EVEN AND UNLABORED. O2 AT 4LPM. WCTM.
[2019-05-23 09:08] VITALS: BP 128/83
--- NOTE | 2019-05-23 17:12 | NUR ---
PATIENT SLEEPING. WILL CONTINUE TO MONITOR.
--- NOTE | 2019-05-23 18:30 | NUR ---
PATIENT SLEEPING. BED LOW. CALL GOULD AND PERSONAL ITEMS IN REACH.
[2019-05-23 19:09] VITALS: BP 128/78
--- NOTE | 2019-05-23 19:09 | NUR ---
PATIENT RESTING IN BED WITH NO S/S OF DISTRESS. CLEARED PATIENT'S TRAY AND BROUGHT HER A DRINK PER HER REQUEST. VSS. PATIENT DENIES OTHER NEEDS AT THIS TIME. BED IN LOWEST POSITION AND CALL LIGHT WITHIN REACH. ENCOURAGED THE PATIENT TO CALL IF SHE HAS NEEDS. WILL CONTINUE TO MONITOR.
[2019-05-23 23:43] VITALS: BP 137/79
[2019-05-24 04:31] VITALS: BP 150/94
[2019-05-24 06:21] LABS: ALBUMIN 2.1 g/dL (3.4-5.0); ALKALINE PHOSPHATASE 196 U/L (46-116); ALT (SGPT) 426 U/L (10-68); BILIRUBIN - TOTAL 0.38 mg/dL (0.2-1.3); CALC OSMOLALITY 286 mosm/kg (275-300); CALCIUM 8.5 mg/dL (8.5-10.1); CARBON DIOXIDE 29.8 mmol/L (21.0-32.0); CHLORIDE - SERUM 105 mmol/L (98-107); CREATININE - SERUM 0.7 mg/dL (0.6-1.3); GLUCOSE 93 mg/dL (74-106); MAGNESIUM - SERUM 2.3 mg/dL (1.8-2.4); PROTEIN - SERUM 6.7 g/dL (6.4-8.2); SODIUM 144 mmol/L (136-145); UREA NITROGEN 13 mg/dL (7-18); eGFR NON AFRICAN AMERICAN > 90 mL/min (90-120)
[2019-05-24 06:27] LABS: BASOPHILS 0.1 % (0-2); EOSINOPHILS 0.5 % (0-7); HEMATOCRIT 39.1 % (36.0-48.0); HEMOGLOBIN 12.6 g/dL (12-16); IMMATURE GRANULOCYTES 0.5 % (0-5); MCH 28.3 pg (26.0-34.0); MCHC 32.2 g/dL (31.0-37.0); MCV 87.9 fL (80.0-100.0); MEAN PLATELET VOLUME 10.5 fL (7.4-10.4); MONOCYTES 5.4 % (2-11); NEUTROPHILS 65.5 % (40-80); PLATELET COUNT 483 10x3/uL (130-400); RBC 4.45 10x6/uL (4.00-5.40); RDW 15.3 % (11.5-14.5); WBC 9.8 10x3/uL (4.8-10.8)
--- NOTE | 2019-05-24 07:15 | NUR ---
RECEIVED REPORT. ASSUMED CARE OF PATIENT. CALL LIGHT WITHIN REACH. PATIENT RESTING IN BED WITH EYES OPEN. PATIENT IS ASKING IF SHE WILL GO HOME TODAY AND IF SHE ISN'T DISCHARGED THEN SHE WILL HAVE TO GO AMA DUE TO HOME RESPONSIBILITIES THAT SHE HAS NOBODY TO HELP WITH, SHE HAS NO FAMILY HERE. EXPLAINED THAT THE SOLAR ENERGY TECHNICIAN WOULD BE HERE SOON. NO DISTRESS.
[2019-05-24 07:50] VITALS: BP 125/78
--- NOTE | 2019-05-24 07:50 | NUR ---
ASSISTED LIVING MANAGER AT BEDSIDE FOR ROUNDS. AFTER ASSISTED LIVING MANAGER LEFT PATIENT VERBALIZED TO ME AGAIN THAT SHE WOULD HAVE TO GO AMA IF NOT DISCHARGED. RECEIVED ORDERS FOR WALK TEST FOR EVALUATION OF HOME OXYGEN AND ASSISTED LIVING MANAGER NOT SURE IS PATIENT ABLE TO BE DISCHARGED AND IN THAT CASE PATIENT HAS THE OPTION TO GO AMA.
--- NOTE | 2019-05-24 09:07 | NUR ---
PATIENT ON ROOM AIR SATURATION IS 86% WITH NO OXYGEN. WALK TEST WAS NOT INITIATED DUE TO RESTING ROOM AIR SAT IS 86%.
--- NOTE | 2019-05-24 09:19 | NUR ---
THIS WELDING EQUIPMENT REPAIRER SUPERVISOR WITH ANOTHER PATIENT AT THIS TIME, PATIENT HOLLORING AT THIS NURSE THAT HER MEDICATIONS ARE LATE AND SHE GETS THEM EVERY MORNING AT 0900. INFORMED PATIENT THAT HER MEDICATIONS ARE NOT LATE AND I WILL BE THERE WITH HER MEDICATIONS SOON I AM DONE WITH MY CURRENT PATIENT. PATIENT IS BEING VERBALLY ABUSIVE IN THE WAY SHE IS SPEAKING WITH ALL STAFF DUE TO HER OWN PERSONAL REASONS OCCURING OUTSIDE OF THE HOSPITAL SETTING THAT ARE AFFECTING HER THAT WE HAVE NO CONTROL OVER. HAVE SPOKEN WITH SHOE HANDLER TO LET HER KNOW HOW VERBALLY RUDE PATIENT IS BECOMMING.
--- NOTE | 2019-05-24 09:37 | NUR ---
WET CROWN BLOCKING OPERATOR HERE AND SPOKE WITH PATIENT, PATIENT MORE CALM. WAITING FOR DC ORDERS NOW.
[2019-05-24] MEDS ORDERED: ZITHROMAX500 MG PO (09:40)
[2019-05-24] MEDS ORDERED: OMNICEF300 MG PO (09:40)
[2019-05-24] MEDS ORDERED: MUCINEX600 MG PO (09:41)
[2019-05-24] MEDS ORDERED: ALBUTEROL SULF8.5 GM INH (09:41)
--- NOTE | 2019-05-24 09:45 | NUR ---
MEDICATED FOR DIARRHEA
--- NOTE | 2019-05-24 09:59 | NUR ---
CASE MANAGMENT ON UNIT TO SPEAK TO PATIENT. CASE MANAGEMENT REPORTS THAT PATIENT SAYS SHE WILL NOT GO AMA AND PATIENT WILL BE DISCUSSED IN THE IDT MEETING.
--- NOTE | 2019-05-24 10:53 | NUR ---
AWAITING R.T TO SEE YI FOR HOME/PORTABLE OXYGEN NEEDS. LEFT NOTE FOR PRIMARY CARE NURSE KRISTIE TO LET ME KNOW WHEN AMANDA MAN FINDS OUT WHO THE CARRIER FOR THE OXYGEN WILL BE. AWAITING CALL BACK TO ME. 1308-NO CALL BACK YET. WHILE REVIEWING CHART FROM , I SEE THAT JERI WILL BE THE CARRIER. PAPERWORK DONE FOR DISCHARGE.
[2019-05-24 12:09] LABS: HEPATITIS C ANTIBODY 0.2 S/CO RAT (0.0-0.9)
--- NOTE | 2019-05-24 12:32 | MORECARE ---
CASE MANAGEMENT DISCHARGE SUMMARY PATIENT: MELISSA DUMONT UNIT: [id number] ADM DATE: 05/20/19 AGE: 48 : 72 SEX: F ROOM/BED: D.1206 AUTHOR: JULIOCESAR AGUERO PHYSICIAN: REFERRING PHYSICIAN: ANGIE CLARKE MD DATE OF SERVICE: 05/24/19 Discharge Plan Patient Name: MELISSA DUMONT Facility: [facility]:[place] : 1970 Planned Disposition: Home or Self Care Anticipated Discharge Date: Discharge Date: Expected LOS: Initial Reviewer: [email or web address] Initial Review Date: 05/20/2019 Generated: 05/24/19 1:32 pm DCPIA - Discharge Planning Initial Assessment Updated by [id number]: Adalgisa Bass on 05/24/19 12:30 pm * Is the patient Alert and Oriented? Yes * How many steps to enter\exit or inside your home? * PCP NICOLAS CARRANZA * Pharmacy [facility] * Preadmission Environment Home Alone * ADLs Independent * Equipment None * List name and contact numbers for known caregivers / representatives who currently or will assist patient after discharge: DARRYL (FRIEND) * Verbal permission to speak to the caregivers and representatives has been obtained from the patient. N/A * Community resources currently utilized None * Additional services required to return to the preadmission environment? Yes * Can the patient safely return to the preadmission environment? Yes * Has this patient been hospitalized within the prior 30 days at any hospital? No External Providers External Provider: Saul Anderson Contact Date: Service Request Date: Service Type: Resolution: Reviewer: Comments: Patient Name: MELISSA DUMONT Page [phone] at 1232 All edits/amendments must be made on the electronic document DICTATION DATE: 05/24/19 1232 PULP MACHINE OPERATOR: MILENA 05/24/19 1232 RPT#: [id number] DC DATE: STATUS: ADM IN [facility] [address] [place] [address] END OF REPORT
--- NOTE | 2019-05-24 12:41 | MORECARE ---
CASE MANAGEMENT DISCHARGE SUMMARY PATIENT: MELISSA DUMONT UNIT: [id number] ADM DATE: 05/20/19 AGE: 48 : 72 SEX: F ROOM/BED: D.1206 AUTHOR: LACI,DOC PHYSICIAN: REFERRING PHYSICIAN: ANGIE CLARKE MD DATE OF SERVICE: 05/24/19 Discharge Plan Patient Name: MELISSA DUMONT Facility: [facility]:[place] : 1970 Planned Disposition: Home or Self Care Anticipated Discharge Date: Discharge Date: Expected LOS: Initial Reviewer: [email or web address] Initial Review Date: 05/20/2019 Generated: 05/24/19 1:41 pm Comments DCP- Discharge Planning Updated by [id number]: Adalgisa Bass on 05/24/19 11:[address] Patient Name: MELISSA DUMONT Admission Status: ER Accout number: [id number] Admission Date: 05-20-2019 : 1970 Admission Diagnosis: Attending: RACHID Current LOS: 4 Anticipated DC Date: Planned Disposition: Home or Self Care Primary Insurance: MEDICAID [place] Discharge Planning Comments: CM met with patient to complete initial dc planning assessment. CM educated patient on the CM role and verbal consent given by patient to complete assessment. Patient lives at home where she is independent with her care. At discharge patient plans to return home and feels this is a safe discharge. Her friend will be her parts delivery driver home. CM discussed availability of home health, rehab services, and medical equipment. She did not want home health. She did qualify for home O2. JACOB with [facility]. Signed and placed in chart. Patient denied known discharge needs at this time. [facility] will deliver the O2 to hospital. CM will continue to follow and will assist as needed with dc plans/needs. Kettle Cook: Adalgisa Bass DCPIA - Discharge Planning Initial Assessment Updated by [id number]: Adalgisa Bass on 05/24/19 12:30 pm * Is the patient Alert and Oriented? Yes * How many steps to enter\exit or inside your home? * PCP NICOLAS CARRANZA * [facility]acy [facility] * Preadmission Environment Home Alone * ADLs Independent * Equipment None * List name and contact numbers for known caregivers / representatives who currently or will assist patient after discharge: DARRYL (FRIEND) * Verbal permission to speak to the caregivers and representatives has been obtained from the patient. N/A * Community resources currently utilized None * Additional services required to return to the preadmission environment? Yes * Can the patient safely return to the preadmission environment? Yes * Has this patient been hospitalized within the prior 30 days at any hospital? No Coverage Notice Reviewer: [email or web address] Lonnie Bass Notice Issued Date-Time: 05/24/2019 9:50 Notice Type: Patient Choice Letter Notice Delivered To: Patient Relationship to Patient: Retail Administrative Assistant Name: Delivery Method: HAND - Hand Delivered Sara Days: Prior Verbal Notification: Recipient Understood Notice: Yes Recipient Signature: Yes Med Rec Note Co-signed by Attending: Coverage Notice Comment: Last DP export: 05/24/19 11:32 a Patient Name: MELISSA DUMONT Page [phone] at 1241 All edits/amendments must be made on the electronic document DICTATION DATE: 05/24/19 1241 BILL HIKER: MILENA 05/24/19 1241 RPT#: [id number] DC DATE: STATUS: ADM IN [facility] [address] [place] [address] END OF REPORT
--- NOTE | 2019-05-24 13:00 | NUR ---
CALLED DR NOVA ABOUT CRITIAL PO2 OF 47, OK TO TO DC HOME WITH O2 SET UP. PATIENT WILL BE DISCHARGING HOME WITH O2 FROM [facility] [place] (PORTABLE & HOME)
--- NOTE | 2019-05-24 18:47 | MORECARE ---
CASE MANAGEMENT DISCHARGE SUMMARY PATIENT: MELISSA DUMONT UNIT: [id number] ADM DATE: 05/20/19 AGE: 48 : 72 SEX: F ROOM/BED: D.1206 AUTHOR: LACI,DOC PHYSICIAN: REFERRING PHYSICIAN: ANGIE CLARKE MD DATE OF SERVICE: 05/24/19 Discharge Plan Patient Name: MELISSA DUMONT Facility: [facility]:[place] : 1970 Planned Disposition: Home or Self Care Anticipated Discharge Date: Discharge Date: 05/24/2019 Expected LOS: Initial Reviewer: [email or web address] Initial Review Date: 05/20/2019 Generated: 05/24/19 7:47 pm Comments DCP- Discharge Planning Updated by [id number]: Adalgisa Bass on 05/24/19 11:[address] Patient Name: MELISSA DUMONT Admission Status: ER Accout number: [id number] Admission Date: 05-20-2019 : 1970 Admission Diagnosis: Attending: RACHID Current LOS: 4 Anticipated DC Date: Planned Disposition: Home or Self Care Primary Insurance: MEDICAID [place] Discharge Planning Comments: CM met with patient to complete initial dc planning assessment. CM educated patient on the CM role and verbal consent given by patient to complete assessment. Patient lives at home where she is independent with her care. At discharge patient plans to return home and feels this is a safe discharge. Her friend will be her package car driver home. CM discussed availability of home health, rehab services, and medical equipment. She did not want home health. She did qualify for home O2. JACOB with [facility]. Signed and placed in chart. Patient denied known discharge needs at this time. [facility] will deliver the O2 to hospital. CM will continue to follow and will assist as needed with dc plans/needs. Boilermaker'S Assistant: Adalgisa Bass DCPIA - Discharge Planning Initial Assessment Updated by [id number]: Adalgisa Bass on 05/24/19 12:30 pm * Is the patient Alert and Oriented? Yes * How many steps to enter\exit or inside your home? * PCP NICOLAS CARRANZA * Pharmacy [facility] * Preadmission Environment Home Alone * ADLs Independent * Equipment None * List name and contact numbers for known caregivers / representatives who currently or will assist patient after discharge: DARRYL (FRIEND) * Verbal permission to speak to the caregivers and representatives has been obtained from the patient. N/A * Community resources currently utilized None * Additional services required to return to the preadmission environment? Yes * Can the patient safely return to the preadmission environment? Yes * Has this patient been hospitalized within the prior 30 days at any hospital? No Coverage Notice Reviewer: [email or web address] - Adalgisa Bass Notice Issued Date-Time: 05/24/2019 9:50 Notice Type: Patient Choice Letter Notice Delivered To: Patient Relationship to Patient: Linoleum Tile Layer Name: Delivery Method: HAND - Hand Delivered Sara Days: Prior Verbal Notification: Recipient Understood Notice: Yes Recipient Signature: Yes Med Rec Note Co-signed by Attending: Coverage Notice Comment: Reviewer: [id number] - Mery Parsons Notice Issued Date-Time: 05/24/2019 11:05 Notice Type: IM Discharge Notice Notice Delivered To: Patient Relationship to Patient: Linoleum Tile Layer Name: Delivery Method: HAND - Hand Delivered Sara Days: Prior Verbal Notification: Recipient Understood Notice: Recipient Signature: Med Rec Note Co-signed by Attending: Coverage Notice Comment: DC IMM delivered, explained, signed by the patient, and placed in his chart. Signed form also left with patient. Mery Parsons RN , [facility] Last DP export: 05/24/19 11:41 a Patient Name: MELISSA DUMONT Page [phone] at 1847 All edits/amendments must be made on the electronic document DICTATION DATE: 05/24/191846 ARMATURE WINDER REPAIR HELPER: MILENA 05/24/191846 RPT#: [id number] DC DATE:05/24/19 STATUS: DIS [facility] [address] [place] [address] END OF REPORT
== END 2019-05-24 14:15 | disposition home or self-care (01) | DRG 178 ==
LOC: D.ER 11:11 → D.M3 12:45
PROVIDERS: Family Medicine; ADMIT Family Medicine; ATTEND Family Medicine
DX: J69.0 Pneumonitis due to inhalation of food and vomit (principal); F17.213 Nicotine dependence, cigarettes, with withdrawal; N17.9 Acute kidney failure, unspecified; E44.0 Moderate protein-calorie malnutrition; J44.1 Chronic obstructive pulmonary disease with (acute) exacerbation; E87.6 Hypokalemia; Z68.24 Body mass index [BMI] 24.0-24.9, adult; G89.29 Other chronic pain; M54.9 Dorsalgia, unspecified; F12.90 Cannabis use, unspecified, uncomplicated

== ENCOUNTER 2019-06-14 10:17 | Emergency (ER) | payer MEDICAID ==
[~2019-06-14] VITALS: Ht 165.1 cm; Wt 65.9 kg
[~2019-06-14 10:17] MED LIST changes: +ATARAX 25 MG TA25 MG PO; +MUCINEX600 MG PO; +OMNICEF300 MG PO; +ZITHROMAX500 MG PO; +ZOLOFT50 MG PO
[2019-06-14 10:25] VITALS: BP 138/81; Ht 165.1 cm; Wt 65.9 kg
[2019-06-14] MEDS ORDERED: METHOCARBAMOL750 MG NG (11:37)
[2019-06-14] MEDS ORDERED: TALWIN NX1 TAB PO (11:37)
== END 2019-06-14 12:21 | disposition home or self-care (01) ==
LOC: D.ER 10:17
DX: R52 Pain, unspecified (principal); M62.838 Other muscle spasm; W19.XXXA Unspecified fall, initial encounter; Y93.9 Activity, unspecified; Y92.9 Unspecified place or not applicable; E16.2 Hypoglycemia, unspecified; G62.9 Polyneuropathy, unspecified

== ENCOUNTER 2019-06-28 23:26 | Emergency (ER) | payer MEDICAID ==
[~2019-06-28] VITALS: Ht 165.1 cm; Wt 65.9 kg
[~2019-06-28 23:26] MED LIST changes: +METHOCARBAMOL750 MG NG; +TALWIN NX1 TAB PO
[2019-06-28 23:29] VITALS: Ht 165.1 cm; Wt 65.9 kg
[2019-06-28 23:57] LABS: HEMOGLOBIN 14.1 g/dL (12-16); LYMPHOCYTES 61.2 % (15-50); MCH 28.3 pg (26.0-34.0); MCHC 32.8 g/dL (31.0-37.0); MCV 86.3 fL (80.0-100.0); MEAN PLATELET VOLUME 9.6 fL (7.4-10.4); NEUTROPHILS 32.7 % (40-80); RBC 4.98 10x6/uL (4.00-5.40); WBC 5.6 10x3/uL (4.8-10.8)
[2019-06-29 00:03] LABS: PLATELET COUNT 226 10x3/uL (130-400)
[2019-06-29 00:05] LABS: CALC OSMOLALITY 288 mosm/kg (275-300); CARBON DIOXIDE 30.5 mmol/L (21.0-32.0); CHLORIDE - SERUM 106 mmol/L (98-107); CREATININE - SERUM 0.8 mg/dL (0.6-1.3); GLUCOSE 78 mg/dL (74-106); POTASSIUM - SERUM 3.4 mmol/L (3.5-5.1); SODIUM 147 mmol/L (136-145); UREA NITROGEN 6 mg/dL (7-18); eGFR NON AFRICAN AMERICAN 81 mL/min (90-120)
[2019-06-29 00:23] LABS: ALBUMIN 3.1 g/dL (3.4-5.0); ALKALINE PHOSPHATASE 76 U/L (46-116); ALT (SGPT) 14 U/L (10-68); BILIRUBIN - TOTAL 0.11 mg/dL (0.2-1.3); CREATINE KINASE 73 UL (21-215); LIPASE 399 U/L (73-393); PROTEIN - SERUM 6.8 g/dL (6.4-8.2)
[2019-06-29 01:01] LABS: HCG URINE NEGATIVE (NEGATIVE)
[2019-06-29 01:03] LABS: APPEARANCE CLEAR (CLEAR); BILIRUBIN NEGATIVE (NEGATIVE); COLOR YELLOW (YELLOW); GLUCOSE NEGATIVE (NEGATIVE); KETONE NEGATIVE (NEGATIVE); NITRITE NEGATIVE (NEGATIVE); PROTEIN TRACE mg/dL (NEGATIVE); SPECIFIC GRAVITY 1.025 (1.005-1.020); UDS - AMPHET NEGATIVE QUAL (NEGATIVE); UDS - BARB NEGATIVE QUAL (NEGATIVE); UDS - BENZO POSITIVE QUAL (NEGATIVE); UDS - COCAINE NEGATIVE QUAL (NEGATIVE); UDS - OPIATE NEGATIVE QUAL (NEGATIVE); UDS - PCP NEGATIVE QUAL (NEGATIVE); UDS - THC POSITIVE QUAL (NEGATIVE); UROBILINOGEN NORMAL (NORMAL)
[2019-06-29 01:05] LABS: BACTERIA FEW /hpf (NEGATIVE); EPITHELIAL CELLS 0-5 /hpf (0-5); RED CELLS - URINE 0-5 /hpf (0-5); WHITE CELLS - URINE 0-5 /hpf (NEGATIVE)
[2019-06-29 02:16] VITALS: BP 99/60
== END 2019-06-29 02:16 | disposition home or self-care (01) ==
LOC: D.ER 23:26
PROVIDERS: Family Medicine
DX: T76.21XA Adult sexual abuse, suspected, initial encounter (principal); R78.0 Finding of alcohol in blood; Y90.8 Blood alcohol level of 240 mg/100 ml or more; M54.9 Dorsalgia, unspecified